=== PATIENT | male | born 1960 | race African-American/Black ===

== ENCOUNTER 2018-06-18 08:38 | Emergency (ER) | payer MEDICAID, OTHER ==
[~2018-06-18] VITALS: Ht 175.3 cm; Wt 77.1 kg
[2018-06-18 08:43] VITALS: BP 113/84
[2018-06-18 09:36] LABS: APPEARANCE,URINE CLOUDY (CLEAR); COLOR,URINE YELLOW (YELLOW)
[2018-06-18 09:38] LABS: BLOOD, URINE LARGE (NEGATIVE); UGLUCOSE NEGATIVE (NEGATIVE)
[2018-06-18 09:39] LABS: BILIRUBIN,URINE NEGATIVE (NEGATIVE); LEUKOCYTE ESTERASE ,URINE 2+ (NEGATIVE); NITRITE, URINE POSITIVE (NEGATIVE)
[2018-06-18 09:40] LABS: RBC,URINE 0-5 (RARE) /HPF (0-5); WBC,URINE TOO MANY TO COUNT /HPF (0-5)
[2018-06-18] MEDS: cefTRIAXone 1,000 MG in LIDOCAINE 1% ***ER ONLY *** 2.1 ML IM ONE (09:58)
[2018-06-18] MEDS: LEVOFLOXACIN 500 MG TAB PO ONE (10:00)
[2018-06-18 10:29] VITALS: BP 113/84
== END 2018-06-18 10:30 | disposition home or self-care (01) ==
LOC: MED 08:38
DX: N39.0 Urinary tract infection, site not specified (principal); G82.20 Paraplegia, unspecified
CPT/HCPCS: 81001; 87086; 87186; 96372; 99284; J0696; J2001